=== PATIENT | female | born 1955 | race African-American/Black ===

== ENCOUNTER 2020-09-09 12:46 | Outpatient (CLI) | payer MEDICARE, MEDICAID, SELFPAY | END 2020-09-09 12:47 | disposition home or self-care (01) | LOC: ANHAUDIO 12:48 | PROVIDERS: PCP Physician Assistant; Visit Provider Physician Assistant | DX: H90.3 Sensorineural hearing loss, bilateral (principal) | CPT/HCPCS: 92553; 92555; 92567 ==

== ENCOUNTER 2020-10-07 10:00 | Outpatient (RCR) | payer MEDICAID, SELFPAY | END 2020-10-07 23:59 | disposition home or self-care (01) | LOC: ANHAUDIO 10:00 | PROVIDERS: PCP Physician Assistant; Visit Provider Physician Assistant | DX: Z46.1 Encounter for fitting and adjustment of hearing aid (principal) | CPT/HCPCS: V5014; V5160; V5261; V5264 ==

== ENCOUNTER 2022-02-05 13:44 | Outpatient (RCR) | payer OTHER, MEDICARE, SELFPAY | END 2022-02-05 23:59 | disposition home or self-care (01) | LOC: ANHAUDIO 13:44 | PROVIDERS: PCP Physician Assistant | DX: Z46.1 Encounter for fitting and adjustment of hearing aid (principal) | CPT/HCPCS: 99199 ==